=== PATIENT | female | born 1980 | race Caucasian/White ===

== ENCOUNTER → 2016-11-02 | Outpatient (CLI) | payer OTHER ==
--- NOTE | 2016-11-02 15:27 | DI ---
History: Left knee pain. 4 view study. Prior examination: None. Findings: Small bone island left lateral femoral condyle, incidental finding. Patellofemoral junction normal. No effusion. Joint compartments well preserved. Impression: Bone island left lateral femoral condyle. No other focal abnormalities identified
== END ==
LOC: ORTHO 10:48
PROVIDERS: ATTEND Physician Assistant
DX: M25.562 Pain in left knee (principal)
CPT/HCPCS: 73564

== ENCOUNTER → 2016-11-12 | Outpatient (CLI) | payer OTHER ==
--- NOTE | 2016-11-12 16:27 | DI ---
BILATERAL RENAL ULTRASOUND, 11/12/2016 8:08 AM: Clinical History: Family history of polycystic renal disease. Previous Exam: None at this facility. Scans are performed through both kidneys in multiple projections. The right kidney measures 123 mm, a nd the left kidney measures 116 mm. There is no solid or cystic mass in either kidney. There is no hy dronephrosis or hydroureter. Perfusion to both kidneys is symmetric and normal. The bladder is normal and there is an estimated pre void volume of 750 mL. There is 75 mL post void residual volume. Bilat eral ureteral jets are identified. Readin. Normal bilateral renal ultrasound. At this time, there is no evidence of polycystic renal disease . 2. The bladder is quite distended but normal, and there is 10% post void residual volume.
== END ==
LOC: US 08:03
PROVIDERS: ATTEND Family Medicine
DX: Z82.71 Family history of polycystic kidney (principal)
CPT/HCPCS: 76770

== ENCOUNTER 2017-03-27 19:15 | Emergency (ER) | payer OTHER ==
[2017-03-27 19:32] VITALS: RESP 16; TEMP 100.5
[2017-03-27] MEDS ORDERED: Amoxicill/Clav 875/125mg Tab 1 TAB TAB PO ONE (19:39)
[2017-03-27] MEDS ORDERED: NEOMY/POLYMYX/HC 10 ML OTIC SUSP EACH EAR ONE (19:39)
--- NOTE | 2017-03-27 20:39 | PDOC ---
General Adult HPI - General Chief Complaint: General Medical Stated Complaint: Right Lateral Neck radiating into right trapezius Date Seen by Provider: 03/27/17 Time Seen by Provider: 19:25 Source: POSITIVE: Patient Exam Limitations: POSITIVE: No limitations Nurse's Notes Reviewed & Considered: Yes - History of Present Illness Initial Comment: The patient is a 36-year-old female. She states that approximately one week ago she awoke with discomfort in her right para cervical musculature, radiating into the superior aspect of her right shoulder. She also complains of pain to the right year for the past several days. No fevers or chills. No radicular symptoms. No meningeal symptoms. No neurologic symptoms. No drainage from ears. No sore throats. No sensory or motor symptoms. Have you received a tetanus shot in the past 10 years?: Unknown Body Location Affected: REPORTS: Neck, Other (Right ear) Timing: REPORTS: Abrupt Duration: <1 week (Approximately one week) Severity: Moderate Quality: REPORTS: "Pain" (As above) Context: REPORTS: None Modifying Factors: improves with: Movement (Of movement of neck.) Similar Symptoms Previously: No Recent Care Received: REPORTS: Denies Any Prior Injuries Related to Current Complaint?: No - Patient Home Medications Home Medications: Home Medications Estradiol 0.5 tab PO DAILY #30 tab 09/22/16 Omeprazole 20 mg PO BID #180 cap 12/27/16 Amoxicillin Trihydrate [Amoxicillin] 500 mg PO Q8H #29 tab 03/27/17 Sertraline HCl [Zoloft] 25 mg PO DAILY 03/27/17 - Patient Allergies Allergies/Adverse Reactions: Allergies Allergy/AdvReac Type Severity Reaction Status Date / Time No Known Drug Allergies Allergy NOT Verified 03/27/17 19:26 APPLICABLE Past Medical History - heen HEENT History: Chipped or Loose Teeth Additional HEENT History: UPPER FRONT BROKEN TOOTH Cardiovascular History: Hyperlipidemia, Other (please comment) Additional Cardiovasular History: MITRAL VALVE PROLAPSE Respiratory History: Denies History Gastrointestinal History: GERD Additional Gastrointestinal History: BLOOD IN STOOL Genitourinary History: Denies History Endocrine History: Denies History Musculoskeletal History: Denies History Prosthesis or Implant: No Neurological History: Denies History Blood Disorders: Other (please comment) Additional Blood Disorders History: iron deficiency Psychiatric History: Depression, Anxiety Disorders History of Sexually Transmitted Diseases: No Female Reproductive History: Hysterectomy Obstetrical History: Delivery Cancer History: Denies History In Past Year Been Physically Harmed or Verbally Threatened: No History of MDRO: No History of Other Communicable Diseases: No Tobacco Use: Never Smoker Alcohol Use: Occasionally Substance Use Type: None Previous Surgical History: Yes Type / Date of Surgery: HYST/ APPY/ C SECTION/ EGD/ BILATERAL OOPH / B CTR Anesthesia Reactions: No Malignant Hyperthermia: No Significant Family History: Diabetes, Hypertension Past Medical History Reviewed: Reviewed - No Changes ROS - Limitations ROS Limitations: No Limitations Constitution: REPORTS: Denies Symptoms Cardiovascular: REPORTS: Denies Cardiac Symptoms Respiratory: REPORTS: Denies Resp Symptoms Neurological: REPORTS: Denies Neuro Symptoms Gastrointestinal: REPORTS: Denies GI Symptoms Endocrine: REPORTS: Denies Symptoms Musculoskeletal: REPORTS: Neck Pain (Right paralumbar discomfort) Genitourinary: REPORTS: Denies Symptoms Eyes: REPORTS: Denies Symptoms ENT: REPORTS: Denies Symptoms Skin: REPORTS: Denies Skin Symptoms Lympathic: REPORTS: Denies Lympathic Symptoms Immunologic: POSITIVE: Denies Symptoms Psychiatric: POSITIVE: Denies Psych Symptoms General Adult Exam - General Appearance General Appearance: POSITIVE: Alert, Cooperative, No Acute Distress, No Evidence of Trauma - HEENT HEENT: POSITIVE: Head Inspection Nml, Eyes Inspection Nml, Nose Inspection Nml, Oral/Dental Inspect. Nml, Pharynx Inspect. Nml, PERRL, EOMI, TM Erythema. NEGATIVE: Ears Inspection Nml (Erythema right tympanic membrane and canal) - Pupils Pupil Size: 3 mm: Bilateral (PERRLA) - Neck Neck: POSITIVE: Thyroid Normal, Thyromegaly, Other (Discomfort on direct palpation right paracervical musculature and superior aspect of right trapezius) . NEGATIVE: Lymphadenopathy, Stiff Neck, Kernig's, Brudzinski's Sign, Carotid Bruit - Respiratory Respiratory: POSITIVE: No Respiratory Distress, Breath Sounds Normal, Chest Non- Tender - Cardiovascular Cardiovascular: POSITIVE: Regular Rate & Rhythm, No Murmur, No Gallop, PMI Normal Peripheral Pulses: Radial (R): 2+, Radial (L): 2+ - Back Back: POSITIVE: Normal Inspection - Skin Skin: POSITIVE: Normal Color, Warm, Dry, No Rash - Extremities Extremity: Non-Tender: (All Extremities), Normal ROM: (All Extremities), Normal Inspection: (All Extremities) - Neurological / Psychological Neurological: POSITIVE: Oriented X3, 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, Motor Normal, Sensation Normal, 5, 6 Images - Complete Complete: 1 - Discomfort on palpation General Adult Progress - Patient's Progress Pain Medication Addressed: POSITIVE: Yes (Advil or Tylenol) School/Work Release Addressed: POSITIVE: Not Applicable Re-Examine Time: 19:40 Status: POSITIVE: Unchanged, Re-Examined Antibiotics Given: Yes (amoxicillin; Corticosporin ear drops) - Consult Counseled: POSITIVE: Patient, RE: DX, RE: Need for F/U Patient Care Time - Estimated PCT Patient Care Time (In Minutes): 20 Vital Signs - Recent Vital Signs Vital Signs: Vital Signs (Last 8 hours) Temp Pulse Resp BP Pulse Ox 03/27/17 19:24 100.5 F H 97 16 108/53 95 - VS Reviewed Vital Signs Reviewed: Yes Discharge Clinical Impression: Otitis externa, Otitis media, Cervical muscle strain Discharge Disposition: Discharged to Home Condition: Stable Prescriptions / Orders: Amoxicillin Trihydrate [Amoxicillin] 500 mg PO Q8H #29 tab Patient Instructions Given at Discharge: Cervical Strain (ED), Otitis Externa ( ED), Otitis Media (ED) Additional Instructions: I believe you have an infection in your right year. For this, please take amoxicillin one every 8 hours. Also instilled Corticosporin ear drops, 5 drops in your right ear every 6 hours while you're awake. You probably do have a cervical strain, probably due to sleeping on your neck wrong. Apply warm moist compresses to the right side of your neck. Advil or Tylenol for discomfort. Follow-up with your primary care provider if you're not back to normal in 7-10 days. Return here anytime as necessary. Follow Up With: GETACHEW GALAVIZ [Primary Care Provider] - (Instructions as above. Return here as necessary.)
== END 2017-03-27 19:55 | disposition home or self-care (01) ==
LOC: ER 19:15
DX: S16.1XXA Strain of muscle, fascia and tendon at neck level, initial encounter (principal); H66.91 Otitis media, unspecified, right ear; H60.91 Unspecified otitis externa, right ear; M25.511 Pain in right shoulder
CPT/HCPCS: 99282